=== PATIENT | female | born 1955 | race Caucasian/White ===

== ENCOUNTER 2016-04-05 14:15 | Emergency (ER) | payer OTHER ==
[2016-04-05] MEDS ORDERED: ASPIRIN 325 MG TAB PO ONE (14:27)
--- NOTE | 2016-04-05 14:29 | CPEKG ---
Heart Rate: 58 RR Interval: 1034 P-R Interval: 156 QRSD Interval: 94 QT Interval: 440 QTC Interval: 433 P [place]: 64 QRS [place]: 60 T Wave [place]: 50 EKG Severity - NORMAL ECG - EKG Impression: SINUS RHYTHM Electronically Signed By: Vargas Dalton 06-Apr-2016 10:51:42
[2016-04-05] MEDS ORDERED: ASPIRIN 81 MG CHEWABLE TAB ONE (14:38)
[2016-04-05 14:42] LABS: ADD DIFF? NO; ADD MORPH? NO; ADD SCAN? NO; ATYPICAL LYMPHOCYTE FLAG 50 (0-99); FRAGMENT RBC FLAG 0 (0-99); HEMATOCRIT 40.9 % (38.0-47.0); HEMOGLOBIN 14.4 g/dL (12.6-16.3); LEFT SHIFT FLG 0 (0-99); LIPEMIA HEMOLYSIS FLAG 90 (0-99); MEAN CELL HEMOGLOBIN 31.4 pg (27.9-34.1); MEAN CELL HEMOGLOBIN CONCENTR. 35.2 g/dL (32.4-36.7); MEAN CELL VOLUME 89.1 fL (81.5-99.8); MEAN PLATELET VOLUME 8.9 fL (8.7-11.7); PLATELET CLUMPS FLAG 0 (0-99); PLATELET COUNT 314 10^3/uL (150-400); RED BLOOD CELL COUNT 4.59 10^6/uL (4.18-5.33); RED CELL DISTRIBUTION WIDTH 12.5 % (11.5-15.2)
[2016-04-05 14:57] LABS: ANION GAP 13 mEq/L (8-16); CARBON DIOXIDE 23 mEq/l (22-31); CHLORIDE 101 mEq/L (97-110); CREATININE 0.7 mg/dL (0.6-1.0); GLOMERULAR FILTRATION RATE > 60; GLUCOSE 100 mg/dL (70-100); SODIUM 137 mEq/L (134-144)
--- NOTE | 2016-04-05 15:27 | UCPHY ---
H & P Time Seen by Provider: 04/05/16 15:09 Patient Type: Established HPI/ROS: 60-year-old female presents complaining of heart palpitations and upper abdominal bloating and pressure that began after eating a meal that included cauliflower last night since that time she has continued to feel this upper abdominal pressure/bloating as well as the heart palpitations. She denies chest pain she denies shortness of breath she went on a long hike yesterday without any chest pain and/or shortness of breath. She denies nausea vomiting or diarrhea. She is burping more than usual as well as passing gas. Review of systems As per HPI General no fever no chills no weakness HEENT no eye pain no eye discharge. No eye redness, no sore throat Respiratory no cough, no shortness of breath Cardiac no chest pain, no peripheral edema GI no abdominal pain, no diarrhea, no constipation, no nausea, no vomiting, positive abdominal bloating no flank pain, no hematuria, no dysuria Musculoskeletal no myalgias, no joint pain Heme no easy bruising, no easy bleeding Endo no polyuria, no polydipsia Skin no rashes, no pruritus Neuro no syncope, no dizziness, no headaches Psych is no suicidal ideation, no homicidal ideation Past Medical/Surgical History: Asthma, GERD Social History: Denies alcohol or drug use Smoking Status: Never smoked Physical Exam: 60-year-old female alert and oriented no acute distress nontoxic appearance afebrile HEENT atraumatic normocephalic, extraocular muscles intact, anicteric Oropharynx negative for erythema negative exudate, tolerating her own secretions Neck supple no meningismus Lungs clear to auscultation bilaterally Heart regular rate and rhythm without murmur rub or gallop Abdomen nondistended normoactive bowel sounds soft nontender, epigastric tenderness to palpation mild, no guarding no rebound no pulsatile mass Back no CVA tenderness, no step-offs, no spinal tenderness Extremities no cyanosis clubbing or edema Neuro alert and oriented, no focal deficits Constitutional: Initial Vital Signs Temperature (C) 36.8 C 04/05/16 14:28 Heart Rate 98 04/05/16 14:28 Respiratory Rate 18 04/05/16 14:28 Blood Pressure 138/89 H 04/05/16 14:28 O2 Sat (%) 99 04/05/16 14:28 O2 Delivery Mode Room Air Allergies/Adverse Reactions: azithromycin [From Zithromax] Allergy (Verified 01/30/13 12:14) Penicillins Allergy (Verified 01/30/13 12:14) Sulfa (Sulfonamide Antibiotics) Allergy (Verified 01/30/13 12:14) Home Medications: Medication Instructions Recorded Albuterol Sulfate [Proventil Hfa] 01/30/13 Fluticasone Hfa 110 Mcg [Flovent 01/30/13 110 MCG Hfa MDI (RX)] Pantoprazole Sodium [Protonix] 40 mg PO DAILY #21 tab 01/30/13 Hydrocodone/APAP 5/325 [[place] 1 - 2 tab PO Q6H PRN #20 tab 08/29/14 5/325 (*)] Medical Decision Making ED Course/Re-evaluation: Patient seen and evaluated for heart palpitations and abdominal bloating which began after eating cauliflower last night Patient admits she has had a long history approximately 3 years of intermittent issues with abdominal bloating. 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 - Data Points Laboratory Results: Laboratory Results 04/05/16 14:35 04/05/16 14:35 04/05/16 04/05/16 04/05/16 Unknown 14:35 14:35 WBC RBC Hgb Hct MCV MCH MCHC RDW Plt Count MPV Neut % (Auto) Lymph % (Auto) [place] % (Auto) Eos % (Auto) Baso % (Auto) Nucleat RBC Rel Count Absolute Neuts (auto) Absolute Lymphs (auto) Absolute Monos (auto) Absolute Eos (auto) Absolute Basos (auto) Absolute Nucleated RBC Immature Gran % Immature Gran # Sodium 137 mEq/L mEq/L (134-144) Potassium 4.0 mEq/L mEq/L (3.5-5.2) Chloride 101 mEq/L mEq/L (97-110) Carbon Dioxide 23 mEq/l mEq/l (22-31) Anion Gap 13 mEq/L mEq/L (8-16) BUN 13 mg/dL mg/dL (7-23) Creatinine 0.7 mg/dL mg/dL (0.6-1.0) Estimated GFR > 60 Glucose 100 mg/dL mg/dL (70-100) Calcium 10.0 mg/dL mg/dL (8.5-10.4) Troponin I < 0.012 ng/mL ng/mL (0-0.034) Lipase 61.0 IU/L IU/L (23-300) TSH 1.840 uIU/mL uIU/mL (0.465-4.680) 04/05/16 14:35 WBC 4.02 10^3/uL 10^3/uL (3.80-9.50) RBC 4.59 10^6/uL 10^6/uL (4.18-5.33) Hgb 14.4 g/dL g/dL (12.6-16.3) Hct 40.9 % % (38.0-47.0) MCV 89.1 fL fL (81.5-99.8) MCH 31.4 pg pg (27.9-34.1) MCHC 35.2 g/dL g/dL (32.4-36.7) RDW 12.5 % % (11.5-15.2) Plt Count 314 10^3/uL 10^3/uL (150-400) MPV 8.9 fL fL (8.7-11.7) Neut % (Auto) 54.0 % % (39.3-74.2) Lymph % (Auto) 37.6 % % (15.0-45.0) [place] % (Auto) 6.0 % % (4.5-13.0) Eos % (Auto) 1.7 % % (0.6-7.6) Baso % (Auto) 0.7 % % (0.3-1.7) Nucleat RBC Rel Count 0.0 % % (0.0-0.2) Absolute Neuts (auto) 2.17 10^3/uL 10^3/uL (1.70-6.50) Absolute Lymphs (auto) 1.51 10^3/uL 10^3/uL (1.00-3.00) Absolute Monos (auto) 0.24 10^3/uL L 10^3/uL (0.30-0.80) Absolute Eos (auto) 0.07 10^3/uL 10^3/uL (0.03-0.40) Absolute Basos (auto) 0.03 10^3/uL 10^3/uL (0.02-0.10) Absolute Nucleated RBC 0.00 10^3/uL 10^3/uL (0-0.01) Immature Gran % 0.0 % % (0.0-1.1) Immature Gran # 0.00 10^3/uL 10^3/uL (0.00-0.10) Sodium Potassium Chloride Carbon Dioxide Anion Gap BUN Creatinine Estimated GFR Glucose Calcium Troponin I Lipase TSH Medications Given: Discontinued Medications Aspirin (Aspirin) 325 mg PO EDNOW ONE Stop: 04/05/16 14:28 Last Admin: 04/05/16 14:40 Dose: 325 mg Miscellaneous Medication (Gi Cocktail) 55 ml PO EDNOW ONE Stop: 04/05/16 15:39 Last Admin: 04/05/16 15:50 Dose: 55 ml Departure - Departure Disposition: Home, Routine, Self-Care Clinical Impression: Abdominal bloating, GERD (gastroesophageal reflux disease), Palpitations Condition: Good Instructions: Palpitations (ED), Gastroesophageal Reflux Disease (ED), Gas and Bloating (ED) Referrals: [facility] [Other] - As per Instructions - PQRS PQRS Measurement: na
[2016-04-05] MEDS ORDERED: MAALOX/LIDO/HYOSC GI COCKTAIL 55 ML BOTTLE PO ONE (15:38)
[2016-04-05 16:36] VITALS: RESP 16; TEMP 36.7
[2016-04-05 17:12] VITALS: BP 133/66; PULSE 52; O2SAT 99
== END 2016-04-05 16:45 | disposition home or self-care (01) ==
LOC: CED 14:15
DX: R14.0 Abdominal distension (gaseous) (principal); R00.2 Palpitations; K21.9 Gastro-esophageal reflux disease without esophagitis
CPT/HCPCS: 80048-PO; 83690-PO; 84443-PO; 84484-PO; 85025-PO; 93010-PO; 99215-PO; G0463-PO